=== PATIENT | female | born 1955 | race Caucasian/White ===

== ENCOUNTER 2016-08-30 11:11 | Emergency (ER) | payer BC ==
[~2016-08-30] VITALS: Wt 90.0 kg
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
[2016-08-30] MEDS ORDERED: ONDA4TAB8 PO (14:04)
[2016-08-30] MEDS ORDERED: CYCL-319 PO ×2 (14:04→14:12)
== END 2016-08-30 14:33 | disposition home or self-care (01) ==
LOC: FTE 11:11
DX: S16.1XXA Strain of muscle, fascia and tendon at neck level, initial encounter (principal); R42 Dizziness and giddiness; V43.53XA Car driver injured in collision with pick-up truck in traffic accident, initial encounter; Z87.891 Personal history of nicotine dependence
CPT/HCPCS: 70450; 72125